=== PATIENT | female | born 1990 | race Two or more races ===

== ENCOUNTER 2024-02-21 19:03 | Emergency (ER) | payer OTHER ==
[~2024-02-21] VITALS: Ht 154.9 cm; Wt 63.5 kg
[2024-02-21 20:58] VITALS: BP 126/70; TEMP 99.4; O2SAT 100
== END 2024-02-21 20:59 | disposition home or self-care (01) ==
LOC: ER 19:07
DX: M79.662 Pain in left lower leg (principal); R10.30 Lower abdominal pain, unspecified; V43.52XA Car driver injured in collision with other type car in traffic accident, initial encounter; Y93.89 Activity, other specified; Y92.488 Other paved roadways as the place of occurrence of the external cause; Y99.8 Other external cause status
CPT/HCPCS: 73590-TC